=== PATIENT | female | born 1960 | race Caucasian/White ===

== ENCOUNTER → 2020-01-22 16:41 | Outpatient (CLI) | payer MEDICAID, SELFPAY ==
--- NOTE | 2020-01-22 16:43 | CT_ITS ---
HISTORY: OSTEOARTHRITIS RIGHT KNEE, NAS PROTOCOL TECHNIQUE: Noncontrast bone protocol CT of the right lower extremity was performed without contrast per NAS preoperative protocol. 2D reformats were performed by the technologist. Number of images including paperwork: 1180. A radiation dose optimization technique was used for this scan. COMPARISON: None FINDINGS: BONES: No acute fracture. Calcaneal enthesophytes. JOINTS: Severe tricompartmental degenerative changes of the right knee with joint space narrowing, subchondral sclerosis, subchondral cystic changes, osteophyte formation and multiple joint bodies. Small right knee joint effusion. Mild degenerative changes of the hips. SOFT TISSUES: Unremarkable. FOREIGN BODY: No radiopaque foreign body. Colonic diverticulosis noted in the visible pelvis. CT/Extremity Lower without Contra IMPRESSION: Severe tricompartmental degenerative changes of the right knee. Individualized dose optimization techniques were used for this CT. at 0239 Reported and signed by: Maria M Srivastava MD Electronically Signed: Maria M Srivastava MD at 2:39 EDT Tel , Service support ,
== END ==
PROVIDERS: PCP Family Medicine; Referring Provider Orthopaedic Surgery; Visit Provider Orthopaedic Surgery
DX: M17.11 Unilateral primary osteoarthritis, right knee (principal)
CPT/HCPCS: 73700

== ENCOUNTER 2020-02-05 11:53 | Observation (INO) | payer MEDICAID, SELFPAY ==
--- NOTE | 2020-01-22 21:42 | PCM.HP.BLA ---
History and Physical History and Physical Patient Name: Nani Valdez : 1960 From: ERICK OKEEFE NP DATE OF SURGERY: 02/05/2020 SCHEDULED PROCEDURE: Right total knee arthroplasty HISTORY OF PRESENT ILLNESS: Preoperative history and physical exam was performed on January 22, 2020. This is a 59-year-old female who has been having bilateral knee pain for several years. Her pain is 10 on a scale of 10. The patient states she hears/feels noises in the right knee with ambulation. The patient does ambulate with the use of a walker. Previous treatments include naproxen and knee braces. The patient also attempted physical therapy with minimal pain relief. The patient has a medical history pertinent for bipolar disease, dependent personality disorder, hyperlipidemia and hypertension. She does have a history of alcohol abuse. Surgical clearance has been obtained from Dr. Salas pending the review of her preoperative labs and EKG. she denies chest pain, fevers, chills, shortness breath, difficulty breathing or recent infections. After failing conservative measures and discussing treatment options with Dr. Sandeep Alexandra the patient does wish to proceed with a right total knee arthroplasty. REVIEW OF SYSTEMS: ROS: Const: Reports anxiety, but denies anorexia, change in appetite, fever and weight change,hard of hearing, and vision problems. CV: Denies chest pain, heart murmur, irregular heartbeat and peripheral vascular disease. Resp: Denies asthma, cough, pneumonia, sleep apnea, SOB, tuberculosis and wheezing. GI: Denies constipation, diarrhea, heartburn, nausea, bloody stools and vomiting, and difficulty swallowing. : Genital: reports irregular menstrual periods. Urinary: denies incontinence. Musculo: Reports stiffness and weakness, but denies leg swelling and trouble walking and limp. Skin: Denies Raynaud's, history of shingles and tattoo. Neuro: Reports tingling but denies ambulatory dysfunction, dizziness, numbness/tingling and tremor. Psych: Reports anxiety and depression, but denies insomnia, mental illness and stress. Kannan/Lymph: Denies anemia, bleeding/bruising tendency and past transfusion. Reviewed, no changes. PAST MEDICAL HISTORY: Advance Care Plan: No Advance Directives Effective Date: 09/05/2018 PMH: Medical Problems: Anxiety, Neuropathy, High Blood Pressure, Allergy, Mental Illness Accidents: None Surgical Hx: Tubal Ligation - 1995 Excision Of Cyst - 1987 Arthroscopy - (02/01/2007) RT KNEE OWL [facility] Hernia Repair - (2019) Anesthesia Complications: None Assistive Devices: Dentures Reviewed, no changes. SOCIAL HISTORY: SH: Marital: Single.Occupation: Disabled.Work Status: Disabled.Hand Dominance: Right-handed. Personal Habits: Cigarette Use: Former.Alcohol: Has consumed alcohol in the past.Drug Use: Denies Use.Enjoy Exercising: Never Exercises. Reviewed, no changes. VITALS: Ht: 64 Wt: 224lb Wt k.606 BMI: 38.4 T: 97.4 T: 36.3C ALLERGIES: No Known Drug Allergy MEDICATIONS: Meloxicam 7.5 mg take 1 tablet by mouth twice A day, Furosemide 20 mg 1 PO qdAY, Metoprolol Tartrate 100 mg 1po qday, Loratadine 10 mg take 1 tablet by mouth every day, Trazodone HCL 100 mg take 2 tablets AT bedtime, OS-Alexsander Calcium + D3 500-200 MG-Unit take 2 tablets every day, Prilosec OTC 20 mg take 1 tablet by mouth every day, Acetaminophen 500 mg 1-2 every 8 hours, Albuterol Inhaler 2 puffs as needed, Aspirin 81 81 mg 1 po qd, Quetiapine Fumarate 400 mg 1 po qd, Omeprazole 20 mg 1po qday, Tizanidine HCL 2 mg 1po tid, Quetiapine Fumarate 200 mg 1po qhs, Prempro 0.625-2.5 mg 1po qday PRE-OP EXAM: General appearance:NORMAL Other: Eyes: Conjunctivae and lids: NORMAL Pupils: ERR Ears, Nose, Mouth, and Throat: NORMAL Other: Inspection of lips, teeth and gums: NORMAL Other: Respiratory: Assessment of respiratory effort: NORMAL Other: Auscultation of lungs: clear to auscultation no wheezes, rhonchi or rales. Cardiovascular: Auscultation of heart: regular rate and rhythm, no murmurs, gallops or rubs. Gastrointestinal: Exam of abdomen: soft, nontender, nondistended bowel sounds present. Neurological: see below Psychiatric: Orientation to time, place and person: NORMAL Other: Mood and affect: NORMAL Other: PHYSICAL EXAMINATION: The patient ambulates with an antalgic gait with the use of a walker. Crepitus with motion. Tenderness with palpation over the medial and lateral joint lines. Range of motion: 0 extension to 130 flexion. Sensation intact light touch. IMAGING STUDIES: 4 views of right knee including sunrise and lateral and bilateral weight-bearing AP and tunnel views obtained on November 24, 2019 reviewed reveals the right knee with valgus alignment and lateral joint space narrowing, subchondral sclerosis and osteophyte formation consistent with severe osteoarthritis. There is significant bony erosions in the lateral compartment. Loose bodies are present in the suprapatellar region. IMPRESSION: 1. Osteoarthritis, right knee 2. Bipolar disease 3. Dependent personality disorder 4. Hyperlipidemia 5. Hypertension 6. History of alcohol abuse 7. GERD PLAN: Dr. Sandeep Alexandra did discuss and review with the patient all treatment options including surgical versus nonsurgical. The patient does wish to proceed with the above-stated procedure. Potential risk, benefits and complications of the procedure were discussed in detail including but not limited to , infection, nerve and blood vessel damage, persistent pain, numbness, tingling, paresthesia, blood clot, pulmonary embolism and requirement for possible further surgery. The patient expressed full understanding and has no further questions for the doctor. The patient does agree to proceed with the above-stated procedure and has signed the surgery consent form. The patient will bring a walker with her to the hospital the day of her surgery. Discussed with the patient the risks associated with the COVID-19 virus including the risk of exposure while at the hospital. The patient was reassured local hospitals have low infection rates and taken all necessary precautions to limit patient exposure to COVID-19. Limiting the patient's time in the hospital may decrease their exposure to COVID-19. The patient was notified that we will need to comply with any screening or testing the hospital wishes to perform and that surgery may be delayed for any positive test results. This dictation was created using voice recognition software. Phonetic and/or grammatical errors may exist. ___ I have re-examined the patient. There are no clinical changes since date of exam. ___ See progress notes for changes. ___ Dictated on admission Date: Time: Signature:
[2020-01-31 19:47] LABS: Probe Check PASS; Specimen Processing Control PASS
[2020-02-01 17:42] LABS: Magnesium 2.1 mg/dL (1.6-2.6)
[2020-02-05] VITALS (13 sets, daily range): BP systolic 115–158; BP diastolic 60–106; PULSE 74–113; RESP 16–18; TEMP 36.6–37.2; O2SAT 92–99; BMI 38.8
[2020-02-05] MEDS: Scopolamine 1mg/72hr Patch 1 PATCH TRANSDERM. (07:30)
[2020-02-05] MEDS: Acetaminophen 500 MG Tablet 1000 MG PO ×3 (08:08→20:46)
[2020-02-05] MEDS: Gabapentin 600 MG Tablet PO (08:08)
[2020-02-05] MEDS: Lactated Ringers 1,000 ML 125 ML IV ×3 (08:25→14:02)
[2020-02-05 08:41] LABS: Bedside Glucose 118 mg/dL (70-110)
--- NOTE | 2020-02-05 09:30 | KNEE_PTH ---
PATIENT: SHA JAMES LOC: MS3 U#:[id number] AGE/SX: 59/F ROOM: MS314 RE02/05/[address]: Dr. Sandeep Alexandra DO : 1960 BED: 1 DIS: 02/06/2020 SPEC #: [id number] RECD: 02/05/20 13:03 STATUS: BERNY RENelli #: [id number] BOB: 02/05/20 09:[address]: Sandeep Alexandra DEPT: SURGICAL PATHOLOGY RECD BY: Sonya Downey ENTERED: 02/05/20 13:51 SP TYPE: TOTAL KNEE OTHR DR: Dr. Ruben Salas MD Tissues: Knee, NOS Procedures: Decalcification bone/plaque Surgery Specimen Level IV HEADER OPERATION: ERAS, total knee replacement robotic arm assist PRE-OP DIAGNOSIS: Right knee osteoarthritis TISSUE SUBMITTED: Bone and tissue right knee MICROSCOPIC DIAGNOSIS Bone and soft tissue of right knee, total knee resection: Severe degenerative joint disease. Mild synovial hyperplasia. AM:azalia 02/09/20 MICROSCOPIC DESCRIPTION Slides are reviewed. GROSS DESCRIPTION Received is one container designated bone and soft tissue right knee. The specimen consists of multiple fragments of bower-yellow bone measuring in aggregate 11 x 9 x 2 cm. Also in the specimen container are multiple fragments of yellow-white soft tissue measuring in aggregate 9.5 x 7 x 2 cm. A number of bony fragments contain articular surfaces consistent with tibial plateau and femoral condyle and displaying prominent osteophyte formation, eburnation and bone erosion. There appears to be a single fragment of white-bower bone cement measuring 3.5 x 3 x 1 cm. Cotton Grader sections are submitted in two cassettes as follows: 1 - soft tissue, 2 - bone after decalcification. / AM:azalia 02/06/20 TC: CPT: 56414, 18824
[2020-02-05] MEDS: Cefazolin 2 GM in 0.9% Normal Saline 100 ML IV (10:02)
[2020-02-05] MEDS: Lidocaine/D5W 2,000 MG/250 ML IV.SOLN 30.6 MG IV (10:15)
[2020-02-05] MEDS: dexAMETHasone 10 MG/ML Vial IV (10:34)
--- NOTE | 2020-02-05 11:55 | RAD_ITS ---
STUDY: X-RAY - RIGHT KNEE REASON FOR EXAM: Female, 59 years old. Post op total knee replacement TECHNIQUE: AP and lateral view(s) of the knee. COMPARISON: None. FINDINGS: Normal visualized distal femur. Normal visualized proximal tibia and fibula. Normal proximal tibiofibular articulation. The patient is status post total knee replacement. There is good alignment. Postoperative soft tissue changes. RAD/Knee 1 or 2 Views IMPRESSION: Status post total knee replacement. There is good alignment. Postoperative soft tissue changes. Electronically Signed: Lee Goss, at 13:47 EDT , Service support ,
--- NOTE | 2020-02-05 11:59 | PCM.OPRPT ---
Report of Operation Date of Procedure: 02/05/20 Pre-Operative Diagnosis: OA right knee Post-Operative Diagnosis: same Surgery/Procedure Performed:: Robotically assisted right TKR crisis mental health therapist: Tramaine Rosas Type of Anesthesia:: General Anesthesiologist: Donnell Myles Specimen's removed: bone Estimated Blood Loss (mL): 25cc Fluids Replaced: 1000 ml crystalloid - Admit VTE Documentation VTE Present on Admission: No VTE Mechan Device Prophylaxis: SCD's, Thigh High NAM Hose VTE Pharm Prophylaxis ordered?: Yes
[2020-02-05 13:28] LABS: Anion Gap 5 (5-15); BUN 10 mg/dL (7-18); BUN/Creat Ratio 12.5 RATIO (10-20); Calcium,Total 8.4 mg/dL (8.5-10.1); Chloride 105 mmol/L (98-107); EST Glomerular Filtration Rate 78 mL/min (>60); Est Glom Filt Rate - Afr Amer 94 mL/min (>60); Estimated Creatinine Clearance 65.38 ml/min; Glucose 161 mg/dL (74-106); Potassium 3.9 mmol/L (3.5-5.1); Sodium Level 136 mmol/L (136-145)
[2020-02-05 13:44] LABS: Hematocrit 38.8 % (37-47); Hemoglobin 12.5 g/dL (12.0-15.0); Mean Corp Hgb Conc 32.2 g/dL (32-36); Mean Corpuscular Hgb 30.8 pg (27.0-32.0); Mean Corpuscular Volume 95.6 fL (81-99); Mean Platelet Vol. 9.4 fl (6.2-12.0); Platelet Count 237 K/mm3 (150-450); RBC Distribution Width CV 12.5 % (11.6-14.6); RBC Distribution Width SD 43.9 fl (35.1-43.9); Red Blood Count 4.06 M/mm3 (4.2-5.4); White Blood Count 8.1 K/mm3 (4.4-11.0)
[2020-02-05] MEDS: oxyCODONE 5 MG Tablet PO ×2 (14:47→20:43)
[2020-02-05] MEDS: Aspirin 325 MG Tablet PO (17:30)
[2020-02-05] MEDS: Cefazolin 1 GM/50 ML BAG IV (17:32)
[2020-02-05] MEDS: QUEtiapine 100 MG Tablet 200 MG PO (20:43)
[2020-02-05] MEDS: Metoprolol Tartrate 100 MG Tablet PO (20:44)
[2020-02-05] MEDS: traZODone 100 MG Tablet 200 MG PO (20:45)
[2020-02-05] MEDS: Senna/Docusate Sodium 1 Tablet 2 TABLET PO (20:45)
[2020-02-06] MEDS: Cefazolin 1 GM/50 ML BAG IV (01:40)
[2020-02-06 02:14] VITALS: BP 111/73; PULSE 72; RESP 16; TEMP 36.9; O2SAT 97
[2020-02-06] MEDS: oxyCODONE 5 MG Tablet PO ×4 (02:46→16:05)
[2020-02-06] MEDS: Acetaminophen 500 MG Tablet 1000 MG PO ×2 (05:44→14:17)
[2020-02-06 07:29] LABS: Hematocrit 32.1 % (37-47); Hemoglobin 10.5 g/dL (12.0-15.0); Mean Corp Hgb Conc 32.7 g/dL (32-36); Mean Corpuscular Volume 94.7 fL (81-99); Mean Platelet Vol. 10.1 fl (6.2-12.0); Platelet Count 220 K/mm3 (150-450); RBC Distribution Width CV 12.6 % (11.6-14.6); RBC Distribution Width SD 43.8 fl (35.1-43.9); Red Blood Count 3.39 M/mm3 (4.2-5.4); White Blood Count 13.2 K/mm3 (4.4-11.0)
--- NOTE | 2020-02-06 07:48 | PCM.PN.ORT ---
Subjective: Patient sitting up in bedside eating breakfast. Patient's pain is well-managed this time. Patient states she is very concerned that she was going to get enough pain medicines to make her pain-free. Advised her should we will be unable to keep her completely pain-free will attempt to keep under control. Denies chest pain, shortness breath, calf pain, nausea vomiting. Patient has no other complaints states she is ready to go home this afternoon. She will be doing her physical therapy and [place]. Objective: Dressings clean dry intact. Negative signs and symptoms of DVT. Patient is afebrile. Vital signs labs reviewed noted medical record. Patient is no respiratory distress speaking in full sentences. - Physical Exam Vitals/I&O's: Vital Signs Temp Pulse Resp BP Pulse Ox 98.4 F 72 16 111/73 97 02/06/20 02:14 02/06/20 02:14 02/06/20 02:14 02/06/20 02:14 02/06/20 02:14 Oxygen Flow Rate (L/min) 6 Oxygen Delivery Method Room Air Weight: 102.6 kg Body Mass Index (BMI) 38.8 Intake and Output for Last 24 Hours 02/04/20 02/05/20 02/06/20 23:59 23:59 23:59 Intake Total 3712.67 / 3712.67 1508.33 / 1508.33 Output Total 1675 / 1675 Balance 3712.67 / 3712.67 -166.67 / -166.67 General: Alert, Oriented x3, Cooperative HEENT: PERRLA Oral: Moist Mucosa Neurological: Cranial nerves II-XII grossly intact Psych/Mental Status: Normal Affect, Alert and oriented to time, place, person, mood and affect Microbiology Past 72 Hours 02/01/20 16:29 Swab (Method) Nasal Screen MRSA/MSSA - Final Laboratory Results 02/05/20 08:03: POC Glucose 118 H 02/05/20 13:10: Sodium 136, Potassium 3.9, Chloride 105, Carbon Dioxide 26.0, Anion Gap 5, BUN 10, Creatinine 0.80, Estim Creat Clear Calc 65.38, Est GFR (MDRD) Af Amer 94, Est GFR (MDRD) Non-Af 78, BUN/Creatinine Ratio 12.5, Glucose 161 H, Calcium 8.4 L 02/05/20 13:38: WBC 8.1, RBC 4.06 L, Hgb 12.5, Hct 38.8, MCV 95.6, MCH 30.8, MCHC 32.2, RDW Std Deviation 43.9, RDW Coeff of Alaina 12.5, Plt Count 237, MPV 9.4 02/06/20 06:30: WBC 13.2 H, RBC 3.39 L, Hgb 10.5 L, Hct 32.1 L, MCV 94.7, MCH 31.0, MCHC 32.7, RDW Std Deviation 43.8, RDW Coeff of Alaina 12.6, Plt Count 220, MPV 10.1 02/06/20 06:30: Sodium Pending, Potassium Pending, Chloride Pending, Carbon Dioxide Pending, Anion Gap Pending, BUN Pending, Creatinine Pending, Est GFR (MDRD) Af Amer Pending, Est GFR (MDRD) Non-Af Pending, BUN/Creatinine Ratio Pending, Glucose Pending, Calcium Pending Current Medications Acetaminophen (Tylenol) 1,000 mg PO Q8 [facility] Last Admin: 02/06/20 05:44 Dose: 1,000 mg Documented by: Albuterol Sulfate (Ventolin Aerosols) 2.5 mg INHALATION Q4H PRN PRN PRN Reason: Asthma [facility] Admin: 02/05/20 17:30 Dose: 325 mg Documented by: Calcium/Vitamin D (Os-Alexsander 500mg + D) 1 tablet PO DAILY [facility] Estrogens Conj/Medroxyprogest Acet (Prempro 0.625-2.5 Mg Tablet) 1 tab PO DAILY [facility] Furosemide (Lasix) 20 mg PO DAILY [facility] Lactated Ringer's () 1,000 mls @ 125 mls/hr IV .Q8H [facility] Last Infusion: 02/06/20 04:19 Dose: Infused Documented by: Sodium Chloride () 250 mls @ 15 mls/hr IV .[id number] PRN PRN Reason: Saline Flush Sodium Chloride () 250 mls @ 15 mls/hr IV .[id number] PRN PRN Reason: Additional IVPB Infusion Loratadine (Claritin) 10 mg PO DAILY [facility] Metoprolol Tartrate (Lopressor (Beta Henrik)) 100 mg PO BID [facility] Last Admin: 02/05/20 20:44 Dose: 100 mg Documented by: Ondansetron HCl (Zofran) 4 mg IV Q8H PRN PRN PRN Reason: NAUSEA Oxycodone HCl (Oxyir) 5 - 10 mg PO Q4H PRN PRN PRN Reason: Pain Score 4-10/10 Last Admin: 02/06/20 07:26 Dose: 10 mg Documented by: Pantoprazole Sodium (Protonix) 20 mg PO DAILY [facility] Promethazine HCl (Phenergan) 12.5 mg IM Q6H PRN PRN; Protocol PRN Reason: NAUSEA/VOMITING Quetiapine Fumarate (Seroquel) 200 mg PO BID [facility] Last Admin: 02/05/20 20:43 Dose: 200 mg Documented by: Senna/Docusate Sodium (Senokot-S, Naomi-Colace) 2 tablet PO BID [facility] Last Admin: 02/05/20 20:45 Dose: 2 tablet Documented by: Sodium Chloride () 10 - 40 ml IV UD PRN PRN Reason: SALINE FLUSH Trazodone HCl (Desyrel) 200 mg PO QHS [facility] Last Admin: 02/05/20 20:45 Dose: 200 mg Documented by: Medical Necessity - Tobacco Use Smoking Status: Former smoker Assessment/Plan Status post right total knee arthroplasty Plan 1. Continue all pain medications as prescribed 2. continue physical therapy, weight-bear as tolerated with walker. 3. Aspirin 325 mg 1 p.o. every 12 hours x30 days for postop DVT prophylaxis 4. Encourage incentive spirometry 5. Ativan 1.5 mg 1 p.o. every 8 hours as needed anxiety 6. Discharge home today, continue outpatient physical therapy at [facility] 7. Follow-up as scheduled.
[2020-02-06 07:52] LABS: Anion Gap 4 (5-15); BUN 11 mg/dL (7-18); BUN/Creat Ratio 16.2 RATIO (10-20); Calcium,Total 8.4 mg/dL (8.5-10.1); Chloride 103 mmol/L (98-107); Creatinine, Serum 0.68 mg/dL (0.55-1.02); EST Glomerular Filtration Rate 94 mL/min (>60); Est Glom Filt Rate - Afr Amer 114 mL/min (>60); Estimated Creatinine Clearance 76.92 ml/min; Glucose 127 mg/dL (74-106); Sodium Level 136 mmol/L (136-145)
--- NOTE | 2020-02-06 07:59 | DCINST_ITS ---
Discharge Diet: No Restrictions Discharge Activity: May Not Drive, May Shower, Use Walker May shower in (days): 3 Ice area for (Minutes): 20 - each hour while awake. Weight Bearing Status: Weight bearing as tolerated Elevate: Operative Extremity Additional Activity Instructions:: Wear elastic stockings for 2 weeks after your surgery. Call your doctor if your incision/area has: Continuous Slow Oozing, Sudden Increased Bleeding, Increased Pain/ Swelling, Increased Redness, Foul Smelling Discharge Call your doctor if you observe: Fever of 101 or Higher, Coldness, Increased Pain - in extremity, Numbness or Tingling, Change in Color, Calf discomfort, Uncontrolled pain Change Dressing in (Days):: 0 - and daily as needed. Remove Dressing in (days):: 8 Cleanse incision/area with: Soap & Water Allergies/Adverse Reactions: Allergies No Known Allergies Allergy (Verified 02/01/20 13:18) Medications to take at Discharge Albuterol Inhaler [Ventolin Hfa] 1 - 2 puff INHALATION Q4H PRN PRN 01/23/20 Calcium Carb/Vitamin D [Os-Alexsander 500MG + D] 1 tab PO DAILY 01/23/20 Estrogen,Con/M-Progest Acet [Prempro 0.625-2.5 MG Tablet] 1 tab PO DAILY 01/23/20 Furosemide [Lasix] 20 mg PO DAILY 01/23/20 Loratadine 10 mg PO DAILY 01/23/20 Meloxicam 7.5 mg PO DAILY 01/23/20 Metoprolol Tartrate [Lopressor (beta rebel)] 100 mg PO BID 01/23/20 Omeprazole [Prilosec] 20 mg PO DAILY 01/23/20 Quetiapine Fumarate [Quetiapine Fumarate ER] 400 mg PO DAILY 01/23/20 Trazodone HCl 200 mg PO QHS 01/23/20 Acetaminophen [Tylenol] 1,000 mg PO Q8 #90 tab 02/06/20 Aspirin 325 mg PO BIDCM #60 tab 02/06/20 Lorazepam [Ativan] 0.5 mg PO Q8H PRN PRN #20 tab 02/06/20 Oxycodone [Oxyir] 5 - 10 mg PO Q4H PRN PRN 7 Days #84 tab 02/06/20 Senna/Docusate Sodium [Senokot-S] 2 tab PO BID tab 02/06/20 The following prescriptions were given: Aspirin 325 mg PO BIDCM #60 tab Transmission Status: Pending to [id number] Lorazepam [Ativan] 0.5 mg PO Q8H PRN PRN #20 tab PRN Reason: Anxiety Transmission Status: Received by [id number] Oxycodone [Oxyir] 5 - 10 mg PO Q4H PRN PRN 7 Days #84 tab PRN Reason: Pain Score 4-10/10 Transmission Status: Received by [id number] Acetaminophen [Tylenol] 1,000 mg PO Q8 #90 tab Transmission Status: Pending to [id number] Primary Care Physician: Ruben Salas MD [Primary Care Provider] - Test Results: Test results from this visit will be discussed in further detail at your follow- up appointment, if applicable. Please Follow Up With: Sandeep Alexandra, DO When: As scheduled (see pink sheet)
[2020-02-06] MEDS: Calcium Carb/Vitamin D 1 TABLET Tablet PO (09:42)
[2020-02-06] MEDS: Furosemide 20 MG Tablet PO (09:42)
[2020-02-06] MEDS: Senna/Docusate Sodium 1 Tablet 2 TABLET PO (09:43)
[2020-02-06] MEDS: QUEtiapine 100 MG Tablet 200 MG PO (09:43)
[2020-02-06] MEDS: Aspirin 325 MG Tablet PO (09:43)
[2020-02-06] MEDS: Pantoprazole Sodium 20 MG Tablet PO (09:43)
[2020-02-06] MEDS: Loratadine 10 MG Tablet PO (09:43)
[2020-02-06 09:45] VITALS: BP 129/80; PULSE 85; RESP 16; TEMP 37.2; O2SAT 93
[2020-02-06 09:47] VITALS: PULSE 85
[2020-02-06] MEDS: Metoprolol Tartrate 100 MG Tablet PO (09:47)
[2020-02-06] MEDS: LORazepam 0.5 MG Tablet PO (09:48)
[2020-02-06] MEDS: Estrogens,Conj. 0.625 MG Tablet PO (09:48)
--- NOTE | 2020-02-06 11:05 | CASEMGMT ---
CODY WEBER Assessment Note Introduced role of CM to patient. She is agitated and adamant about going home this evening. CODY WEBER discussed DME companies for walker and patient has no preference but states I'm going home if I have a walker or not. CODY WEBER assured patient we would look into a walker for her. Call to [facility]. Patient had told them she had a walker. CODY WEBER requested a script for the walker be sent to [facility]. Face sheet and insurance card information faxed to [facility] by CODY WEBER. Call to let them know that walker will need to be delivered to [facility]. -Call to [facility] to verify first appt is tomorrow, and appt @ [facility] is Mar 04. Placed in DC appts and copy to patient. Operation: R TKR PCP: Dr. Salas Specialists: Dr. Alexandra Insurance: [employer] Preferred Pharmacy: [facility] Prescription Benefit: yes LNOK: Reilly Ocasio, Significant Other Living Arrangements: Lives in one story apartment Tranportation: friend drives DME: rollator cane, lift chair, raised toilet seat. Script for ww to [facility] and is to be delivered today. HHC: no per patient SNF: no per patient DC Plan: Home. CM available for discharge planning coordination. Contact CM for any concerns/needs that may arise. Fredis CUEVAS RN ACM
--- NOTE | 2020-02-06 11:24 | CASEMGMT ---
RN CM Note: walker from [facility] was delivered to room. DC appts reviewed with patient and she states she will be able to go to therapy tomorrow. No other concerns. Fredis CUEVAS RN ACM
--- NOTE | 2020-02-06 11:30 | PHA.DC.MC ---
Pharmacy Service has performed discharge medication reconciliation and counseling for this patient. The patient was counseled on the following discharge medications and changes in medications for homegoing were reviewed. 1. OXYCODONE 2. ACETAMINOPHEN 3. ATIVAN 4. SENNA/DOCUSATE 5. ASPIRIN The Reason for Use, instructions for use, and potential side effects were reviewed for all new medications. The patient's questions regarding all of their medications were answered. The patient demonstrated some understanding but would benefit from further education and reinforcement. Home Medications Albuterol Inhaler [Ventolin Hfa] 1 - 2 puff INHALATION Q4H PRN PRN 01/23/20 Calcium Carb/Vitamin D [Os-Alexsander 500MG + D] 1 tab PO DAILY 01/23/20 Estrogen,Con/M-Progest Acet [Prempro 0.625-2.5 MG Tablet] 1 tab PO DAILY 01/23/20 Furosemide [Lasix] 20 mg PO DAILY 01/23/20 Loratadine 10 mg PO DAILY 01/23/20 Meloxicam 7.5 mg PO DAILY 01/23/20 Metoprolol Tartrate [Lopressor (beta rebel)] 100 mg PO BID 01/23/20 Omeprazole [Prilosec] 20 mg PO DAILY 01/23/20 Quetiapine Fumarate [Quetiapine Fumarate ER] 400 mg PO DAILY 01/23/20 Trazodone HCl 200 mg PO QHS 01/23/20 Acetaminophen [Tylenol] 1,000 mg PO Q8 #90 tab 02/06/20 Aspirin 325 mg PO BIDCM #60 tab 02/06/20 Lorazepam [Ativan] 0.5 mg PO Q8H PRN PRN #20 tab 02/06/20 Oxycodone [Oxyir] 5 - 10 mg PO Q4H PRN PRN 7 Days #84 tab 02/06/20 Senna/Docusate Sodium [Senokot-S] 2 tab PO BID tab 02/06/20 The patient's discharge medication list was reviewed for discrepancies and discrepancies were resolved.
[2020-02-06 14:20] VITALS: BP 139/76; PULSE 80; RESP 18; TEMP 36.9; O2SAT 94
--- NOTE | 2020-02-06 15:09 | CASEMGMT ---
Social Work Note BEATRIZ reviewed chart. Pt has history of Bipolar D/O, Dependent personality D/O, and alcohol abuse. SW in to speak with pt. SW introduced self and role at [facility]. Pt is alert and orientated x3. Pt states that she has everything she needs at home, good support, and is ready to go home. Pt states she does have history of depression, states depression is being well managed, states she likes to express her feelings. Pt denied any suicidal thoughts/plans/ideations. Pt denied any current substance use. Pt denied additional needs or concerns at this time. Kathi Cobos CUSTOMER ACCOUNT MANAGER, RAG SORTER
== END 2020-02-06 16:40 | disposition home or self-care (01) ==
LOC: SDC 12:49 → MS3 12:49
PROVIDERS: Anesthesiology; Admitting Provider Orthopaedic Surgery; PCP Family Medicine; Referring Provider Orthopaedic Surgery; Visit Provider Orthopaedic Surgery
PROC: 0SRC0JZ Replacement of Right Knee Joint with Synthetic Substitute, Open Approach (ICD-10-PCS; CPT 27447; principal; 2020-02-05 09:00)
DX: M17.11 Unilateral primary osteoarthritis, right knee (principal); I10 Essential (primary) hypertension; E78.5 Hyperlipidemia, unspecified; F10.10 Alcohol abuse, uncomplicated; F60.7 Dependent personality disorder; F31.9 Bipolar disorder, unspecified; K21.9 Gastro-esophageal reflux disease without esophagitis; F41.9 Anxiety disorder, unspecified; Z11.59 Encounter for screening for other viral diseases; Z79.899 Other long term (current) drug therapy; Z79.82 Long term (current) use of aspirin; Z87.891 Personal history of nicotine dependence; J45.909 Unspecified asthma, uncomplicated
CPT/HCPCS: 01400; 27447; S2900; 36415; 73560; 80048; 82962; 83735; 85027; 87081; 87635; 88305; 88311; 96361; 96365; 96366; 97110; 97116; 97161; 97166; 97530; 97535; 99218; 99251; C1776; C9803; J7120; G0378; G0379; G0463; J2405; U0003